=== PATIENT | male | born 1960 | race Caucasian/White ===

== ENCOUNTER 2017-03-12 16:45 | Emergency (ER) | payer OTHER ==
--- NOTE | 2017-03-12 17:01 | UC ---
Throat Pain/Nasal Kar HPI - HPI Summary HPI Summary: complaint of right ear pain that started approx 3 days ago today pain is much worse soret throat started today denies fever and chills slight nasal congestion denies cough denies N/V/D took acetaminophen without relief took his blood pressure medication 30 minutes before arrival - History of Current Complaint Chief Complaint: UCEar Stated Complaint: EAR PAIN Time Seen by Provider: 03/12/17 16:53 Hx Obtained From: Patient - Allergies/Home Medications Allergies/Adverse Reactions: Allergies Allergy/AdvReac Type Severity Reaction Status Date / Time No Known Allergies Allergy Verified 09/23/13 07:45 Home Medications: Home Medications Acetaminophen TAB* [Tylenol TAB*] 325 mg PO Q4H PRN 03/12/17 [History Confirmed 03/12/17] Lisinopril TAB* [Prinivil TAB 10 MG*] 10 mg PO DAILY 03/12/17 [History Confirmed 03/12/17] PMH/Surg Hx/FS Hx/Imm Hx Previously Healthy: Yes Cardiovascular History: Hypertension - Surgical History Surgical History: None - Family History Known Family History: Positive: Hypertension Negative: Cardiac Disease, Diabetes - Social History Occupation: Employed Full-time Lives: With Family Alcohol Use: Rare Substance Use Type: None Smoking Status (MU): Never Smoked Tobacco Have You Smoked in the Last Year: No Review of Systems Constitutional: Negative Skin: Negative Eyes: Negative ENT: Ear Ache, Nasal Discharge Respiratory: Negative Cardiovascular: Negative Gastrointestinal: Negative Genitourinary: Negative Motor: Negative Neurovascular: Negative Musculoskeletal: Negative Neurological: Headache Psychological: Negative All Other Systems Reviewed And Are Negative: Yes Physical Exam Triage Information Reviewed: Yes Appearance: No Pain Distress, Well-Nourished Vital Signs: Initial Vital Signs Temp 98.4 F 03/12/17 16:47 Pulse 87 03/12/17 16:47 Resp 14 03/12/17 16:47 BP 175/106 03/12/17 16:47 Pulse Ox 99 03/12/17 16:47 Vital Signs Reviewed: Yes Eyes: Positive: Conjunctiva Clear ENT: Positive: Pharyngeal erythema, Nasal congestion, TM bulging, TM red - right , Tonsillar swelling, Tonsillar exudate Dental: Positive: Cervical Lymphadenopathy Respiratory: Positive: Lungs clear, Normal breath sounds, No respiratory distress, No accessory muscle use Cardiovascular: Positive: RRR, No Murmur, Pulses Normal Abdomen Description: Positive: Nontender, Soft Bowel Sounds: Positive: Present Musculoskeletal: Positive: No Edema Neurological: Positive: Alert Psychological Exam: Normal Skin Exam: Normal Throat Pain/Nasal Course/Dx - Differential Dx/Diagnosis Differential Diagnosis/HQI/PQRI: Otitis Media, Pharyngitis, Tonsillitis Provider Diagnoses: right otitis media, pharyngitis, elevated blood pressure Discharge - Discharge Plan Condition: Stable Disposition: HOME Prescriptions: Amoxicillin PO (*) [Amoxicillin 500 MG CAP*] 500 mg PO Q12H #20 cap Patient Education Materials: Otitis Media (ED), Pharyngitis (ED) Referrals: Chauncey Esparza MD [Primary Care Provider] - Additional Instructions: Please start antibiotic as directed Increase fluids and rest Take acetaminophen or ibuprofen for fever or pain Please review your discharge instructions. If your symptoms do not improve please call your primary care provider or return to urgent care. Your blood pressure is elevated. Please contact your primary care provider within 1 -4 weeks for further evaluation.
[2017-03-12 17:06] VITALS: BP 175/106
== END 2017-03-12 17:20 | disposition home or self-care (01) ==
LOC: UCEAST 16:45
DX: H66.91 Otitis media, unspecified, right ear (principal); J02.9 Acute pharyngitis, unspecified; R03.0 Elevated blood-pressure reading, without diagnosis of hypertension; I10 Essential (primary) hypertension
CPT/HCPCS: 87651; 99212; G0463

== ENCOUNTER 2018-10-07 11:51 | Emergency (ER) | payer OTHER ==
[2018-10-07 11:59] VITALS: BP 137/94
--- NOTE | 2018-10-07 12:51 | UC ---
Lower Extremity/Ankle HPI - HPI Summary HPI Summary: Patient presents to urgent care for evaluation of the right foot and ankle. Patient states approximately 30 mins prior to arrival he slipped on a step and rolled inverting his right ankle. Patient with pain lateral aspect of the ankle to the base of the fifth metatarsal. Patient took some Tylenol prior to arrival. No ice applied. Patient is paresthesias. No knee or hip pain. Did not strike head or lose consciousness. No neck or back pain. No other injuries. Patient denies a previous injury to the right ankle. Patient is on any anticoagulation. Medications reviewed this visit. - History of Current Complaint Chief Complaint: UCLowerExtremity Stated Complaint: ANKLE INJURY Time Seen by Provider: 10/07/18 12:51 Hx Obtained From: Patient Onset/Duration: Sudden Onset Severity Initially: Moderate Severity Currently: Moderate Pain Intensity: 8 Pain Scale Used: 0-10 Numeric - Allergies/Home Medications Allergies/Adverse Reactions: Allergies Allergy/AdvReac Type Severity Reaction Status Date / Time No Known Allergies Allergy Verified 10/07/18 11:59 Home Medications: Home Medications Acetaminophen TAB* [Tylenol TAB*] 1,000 mg PO ONCE 10/07/18 [History Confirmed 10/07/18] PMH/Surg Hx/FS Hx/Imm Hx Previously Healthy: Yes - Surgical History Surgical History: None - Family History Known Family History: Positive: Hypertension, Non-Contributory Negative: Cardiac Disease, Diabetes - Social History Occupation: Employed Full-time Lives: With Family Alcohol Use: Rare Substance Use Type: None Smoking Status (MU): Never Smoked Tobacco Have You Smoked in the Last Year: No Review of Systems All Other Systems Reviewed And Are Negative: Yes Constitutional: Positive: Negative Skin: Positive: Bruising Eyes: Positive: Negative Musculoskeletal: Positive: Other: - + ankle pain, foot pain Physical Exam - Summary Physical Exam Summary: Vital Signs Reviewed: Yes A+Ox3, no distress Eyes: Conjunctiva Clear ENT: Hearing grossly normal neck: supple Respiratory: Positive: No respiratory distress, No accessory muscle use Cardiovascular: skin color reflect adequate perfusion 2+ DP, PT CBT <2 sec Musculoskeletal Exam: + SLE + flex/ext knee, ankle with pain lateral malleolus, anterior/inferior area ase 5th + TTP same mild edema base 5th Neurological: Positive: Alert, ambulatory with difficulty related to pain in foot + gross sensation Psychological: Positive: Normal Response To Family Skin: Positive: no rash, no ecchymosis, mild edema malleolus Triage Information Reviewed: Yes Vital Signs: Initial Vital Signs Temp 98.8 F 10/07/18 11:56 Pulse 87 10/07/18 11:56 Resp 12 10/07/18 11:56 BP 137/94 10/07/18 11:56 Pulse Ox 98 10/07/18 11:56 Diagnostics - Radiology No standard instances Radiology Interpretation Completed By: Radiologist - Patient Name: TOPHER BOWEN Medical Record#: [id number] Ordering Physician: Angely Holley MD Acct.#: [id number] : 1960 Age: 57 Sex: M Location: [facility]RGENT [facility] Exam Date: 10/07/18 120 ADM Status: REG ER Order Information: ANKLE RIGHT 3+ VWS Accession Number: [id number] CPT: 33758 INDICATION: Right ankle injury. TECHNIQUE: 3 views of the right ankle were obtained. FINDINGS: There is mild dorsal soft tissue swelling. The bones are in normal alignment. No fracture is seen. Joint spaces appear maintained. IMPRESSION: NO EVIDENCE FOR FRACTURE. <Electronically signed by Aki Walters MD in OV> 10/07/18 1224 Dictated By: Aki Walters MD Dictated Date/Time: 10/07/18 1224 Transcribed Date/Time: 10/07/18 1223 Copy to: CC:[facility]; Angely Holley MD; Ibeth Crowder MD [facility] [address] [address] ph [phone]) ph ([phone]) ph ([phone]) This report is only to be considered final once signed by the Provider(s) as displayed in the "<Electronically Signed by >" field (s). Absence of a signature indicates the report is in a draft status and still needs to be finalized. In the event this document was created by someone other than the signing Provider, the individual initiating the document will be listed in the "Entered by:" or "Dictated by:" ott. 1 of 1 Patient Name: TOPHER BOWEN Medical Record#: [id number] Ordering Physician: Angely Holley MD Acct.#: [id number] : 1960 Age: 57 Sex: M Location: [facility] Exam Date: 10/07/18 1304 ADM Status: REG ER Order Information: FOOT RIGHT 3+ VWS Accession Number: [id number] CPT : 65060 INDICATION: Right foot injury. TECHNIQUE: 3 views of the right foot were obtained. FINDINGS: The bones are in normal alignment. There is a bony ossicle adjacent to the lateral aspect of the cuboid bone. No acute fracture is seen. Joint spaces appear maintained. IMPRESSION: NO EVIDENCE FOR ACUTE FRACTURE. ____ <Electronically signed by Aki Walters MD in OV> 10/07/18 1326 Dictated By: Aki Walters MD Dictated Date/Time: 10/07/18 1326 Transcribed Date/Time: 10/07/18 1324 Copy to: CC:Angely Holley MD; Ibeth Crowder MD [facility] [place] [facility] [address] [address] ph [phone]) ph ([phone]) ph ([phone]) This report is only to be considered final once signed by the Provider(s ) as displayed in the "<Electronically Signed by >" field (s). Absence of a signature indicates the report is in a draft status and still needs to be finalized. In the event this document was created by someone other than the signing Provider, the individual initiating the document will be listed in the "Entered by:" or "Dictated by:" ott. 1 of 1 Lower Extremity Course/Dx - Course Course Of Treatment: Patient presents for evaluation and treatment of his right ankle and foot that occurred after he inverted off of the bottom step. Patient denies paresthesias. Patient took Tylenol prior to arrival. Patient apply ice. Patient without previous injury. Patient without any other injuries. On exam pain with palpation on the right lateral malleolus as well as the base of right fifth metatarsal. Patient with mild edema. No open wounds. Imaging negative for fracture. Patient is placed in Chase wrap and air splint. Ice. Elevate. Motrin Tylenol. Patient given referral to sports medicine or orthopedic. Patient comfortable in agreement with plan. - Differential Dx/Diagnosis Provider Diagnosis: Ankle sprain, Foot contusion Discharge - Sign-Out/Discharge Documenting (check all that apply): Patient Departure All imaging exams completed and their final reports reviewed: Yes - Discharge Plan Condition: Stable Disposition: HOME Patient Education Materials: Ankle Sprain (ED) Referrals: Ibeth Crowder MD [Primary Care Provider] - Justo Cummins MD [Medical Doctor] - [facility] [Provider Group] Additional Instructions: -wear chase wrap and splint for comfort and support -apply ice (20 min at a time) every 2-3 hours for the next 2 days -use crutches until you can walk normally without a limp -Elevate your leg - this will help with swelling and pain - Alternate ibuprofen (Advil, Motrin) 600mg and tylenol every 3 hours for pain. Take with food. Do NOT take for more than 4-5 days -Contact your doctor, the orthopedics pediatric physician, or the recreational sports director on Tuesday to arrange a follow-up appointment this coming week. Contact your doctor or return with questions or concerns - Billing Disposition and Condition Condition: STABLE Disposition: Home
== END 2018-10-07 13:38 | disposition home or self-care (01) ==
LOC: UCEAST 11:51
DX: S93.401A Sprain of unspecified ligament of right ankle, initial encounter (principal); S90.31XA Contusion of right foot, initial encounter; R20.2 Paresthesia of skin; W18.40XA Slipping, tripping and stumbling without falling, unspecified, initial encounter; Y92.9 Unspecified place or not applicable
CPT/HCPCS: 99213; G0463